=== PATIENT | male | born 1960 | race Caucasian/White ===

== ENCOUNTER 2025-09-11 05:40 | Day surgery (SDC) | payer BC ==
[2025-09-11] MEDS ORDERED: Ondansetron PF 4 MG/2 ML Vial ONE (06:21)
[2025-09-11] MEDS ORDERED: metroNIDAZOLE 500 MG (100 mL) BAG ONE (06:21)
[2025-09-11] MEDS ORDERED: Acetaminophen 325 MG TAB ONE (06:21)
[2025-09-11] MEDS ORDERED: Rocuronium Bromide 10 MG/ML (10ML VIAL) ONE ×2 (06:21→07:26)
[2025-09-11] MEDS ORDERED: CEFAZOLIN 2 GM VIAL ONE (06:21)
[2025-09-11] MEDS ORDERED: PROPOFOL 20 ML ONE ×2 (06:21→08:53)
[2025-09-11 06:41] LABS: #Basophils 0.08 10x3/uL (0.0-0.2); #Eosinophils 0.48 10x3/uL (0.0-0.7); #Monocytes 0.91 10x3/uL (0.11-0.59); #Neutrophils 4.51 10x3/uL (1.40-6.50); %Basophils 1.0 % (0.0-1.0); %Eosinophils 6.0 % (0.0-10.0); %Lymphocytes 24.1 % (21.0-51.0); %Monocytes 11.4 % (0.0-10.0); %Neutrophils 56.5 % (42.0-75.0); Hematocrit 42.8 % (42.0-52.0); Hemoglobin 14.3 g/dL (14.0-18.0); Mean Corpuscular Hemoglobin 29.3 pg (27.0-31.0); Mean Corpuscular Volume 87.7 fL (78.0-98.0); Platelet Count 284 10x3/uL (130-400); Red Blood Cell (RBC) Count 4.88 mill/uL (4.70-6.10); White Blood Cell (WBC) Count 7.98 10x3/uL (4.8-10.8)
[2025-09-11] MEDS ORDERED: Bupivacaine 0.25% HCL 30 ML VIAL ONE (06:41)
[2025-09-11 07:02] LABS: Anion Gap 19 mmol/L (10-20); BUN (Urea Nitrogen) 8 mg/dL (8.4-25.7); Calc. Creatinine Clearance 125 mL/min (70-130); Calcium 9.8 mg/dL (7.8-10.44); Carbon Dioxide 26 mmol/L (23-31); Chloride 92 mmol/L (98-107); Glucose 112 mg/dL (80-115); Potassium 4.0 mmol/L (3.5-5.1); Sodium 133 mmol/L (136-145)
[2025-09-11] MEDS ORDERED: PROPOFOL 200 MG/20 ML VIAL ONE (07:26)
[2025-09-11] MEDS ORDERED: SUGAMMADEX SODIUM 200 MG/2 ML VIAL ONE (08:08)
[2025-09-11] MEDS ORDERED: fentaNYL PF 100 MCG/2 ML SYRINGE ONE (08:49)
[2025-09-11] MEDS ORDERED: Ketorolac Tromethamine 30 MG (1 mL) VIAL ONE (08:49)
[2025-09-11] MEDS ORDERED: Ondansetron PF 4 MG/2 ML Vial IVP PRN (08:51)
[2025-09-11] MEDS ORDERED: hydrALAZINE 20 MG/ML VIAL SLOW IVP PRN (08:51)
[2025-09-11] MEDS ORDERED: Non-Formulary Item 1 EACH (Albuterol Hfa (Or) 200 PUFF Inh) FS SCH (09:00)
[2025-09-11] MEDS ORDERED: HYDROmorphone 0.5 MG/0.5 ML SYRINGE ONE (09:37)
[2025-09-11 10:23] VITALS: BMI 28.2
[2025-09-11] MEDS: Acetaminophen 325 MG TAB PO SCH (10:54)
[2025-09-11] MEDS: Ketorolac Tromethamine 30 MG (1 mL) VIAL IVP SCH (11:01)
[2025-09-11] MEDS: Albuterol 200 PUFF (6.7GM INHALER) INH SCH (15:20)
[2025-09-11] MEDS ORDERED: Albuterol 200 PUFF (6.7GM INHALER) INH PRN (15:39)
[2025-09-11] MEDS: Lisinopril 20 MG TAB PO SCH (20:41)
[2025-09-11] MEDS ORDERED: Non-Formulary Item 1 EACH (Lisinopril [Lisinopril] 40 MG Tablet) PO SCH (21:00)
[2025-09-12 04:20] LABS: #Basophils Less than 0.03 10x3/uL (0.0-0.2); #Eosinophils 0.07 10x3/uL (0.0-0.7); #Monocytes 1.07 10x3/uL (0.11-0.59); #Neutrophils 9.41 10x3/uL (1.40-6.50); %Basophils 0.2 % (0.0-1.0); %Eosinophils 0.6 % (0.0-10.0); %Lymphocytes 13.7 % (21.0-51.0); %Monocytes 8.6 % (0.0-10.0); %Neutrophils 76.0 % (42.0-75.0); Hematocrit 34.6 % (42.0-52.0); Hemoglobin 11.6 g/dL (14.0-18.0); Mean Corpuscular Hemoglobin 29.5 pg (27.0-31.0); Mean Corpuscular Volume 88.0 fL (78.0-98.0); Platelet Count 224 10x3/uL (130-400); Red Blood Cell (RBC) Count 3.93 mill/uL (4.70-6.10); White Blood Cell (WBC) Count 12.38 10x3/uL (4.8-10.8)
[2025-09-12 04:52] LABS: Anion Gap 13 mmol/L (10-20); BUN (Urea Nitrogen) 10 mg/dL (8.4-25.7); Calc. Creatinine Clearance 132 mL/min (70-130); Calcium 8.6 mg/dL (7.8-10.44); Carbon Dioxide 25 mmol/L (23-31); Chloride 95 mmol/L (98-107); Glucose 115 mg/dL (80-115); Potassium 3.3 mmol/L (3.5-5.1); Sodium 130 mmol/L (136-145)
[2025-09-12] MEDS: Mometasone 100 MCG/Formoterol 5 MCG 120 PUFF INHALER INH SCH (06:49)
[2025-09-12 08:07] VITALS: BP 110/67; TEMP 97.9
== END 2025-09-12 10:06 | disposition home or self-care (01) ==
LOC: SDC 05:40 → MSONC 10:12 → SDC 09-12 10:06
PROVIDERS: ATTEND Surgery
PROC: 0DBH4ZZ Excision of Cecum, Percutaneous Endoscopic Approach (ICD-10-PCS; principal; 2025-09-11)
PROC: 3E0H8GC Introduction of Other Therapeutic Substance into Lower GI, Via Natural or Artificial Opening Endoscopic (ICD-10-PCS; principal; 2025-09-11)
PROC: 0WQF4ZZ Repair Abdominal Wall, Percutaneous Endoscopic Approach (ICD-10-PCS; principal; 2025-09-11)
DX: K63.89 Other specified diseases of intestine (principal); K55.20 Angiodysplasia of colon without hemorrhage; K42.9 Umbilical hernia without obstruction or gangrene; I10 Essential (primary) hypertension
CPT/HCPCS: 36415; 36416; 80048; 85025; 88305; 93005; 93010; J0169; J0665; J1100; J1171; J1885; J2405; J2704; J3010; S2900